=== PATIENT | male | born 1965 | race Caucasian/White ===

== ENCOUNTER 2018-01-24 04:34 | Inpatient (IN) | payer OTHER ==
[~2018-01-24] VITALS: Ht 175.3 cm; Wt 104.8 kg
[2018-01-24] VITALS (18 sets, daily range): BP systolic 116–186; BP diastolic 69–121
[2018-01-24] MEDS ORDERED: NOHOMEMEDICATIONS (05:19)
[2018-01-24 05:41] LABS: URINE BILIRUBIN NEGATIVE (Negative); URINE BLOOD TRACE (Negative); URINE CLARITY CLEAR; URINE COLOR YELLOW; URINE GLUCOSE-RANDOM 3+ (Negative); URINE KETONES 2+ (Negative); URINE LEUKOCYTES-REFLEX NEGATIVE (Negative); URINE NITRITE-REFLEX NEGATIVE (Negative); URINE PROTEIN NEGATIVE (Negative); URINE SPECIFIC GRAVITY <= 1.005 (1.005-1.030); URINE UROBILINOGEN 0.2 E.U./dl (0.2-1.0)
[2018-01-24 05:49] LABS: HEMATOCRIT 51.3 % (42.0-52.0); HEMOGLOBIN 17.1 gm/dL (14.0-18.0); MCH 32.6 pg (26.0-34.0); MCHC 33.4 g/dL (28.0-37.0); MCV 97.7 fL (80.0-100.0); MPV 10.7 fl. (7.2-11.1); NUCLEATED RBCS 0 /100WBC; PLATELET COUNT* 200 thou/uL (150-400); RBC 5.25 mil/uL (4.50-6.00); RDW-CV 13.9 % (10.5-14.5); WBC 8.2 thou/uL (4.0-11.0)
[2018-01-24 05:57] LABS: AMP/METHAMP POSITIVE (Negative); BARBITURATES Negative (Negative); BENZODIAZEPINES Negative (Negative); COCAINE Negative (Negative); METHADONE Negative (Negative); OPIATES Negative (Negative); PCP Negative (Negative); THC Negative (Negative)
[2018-01-24 06:01] LABS: BUN 19 mg/dL (7-18); CALCIUM 10.9 mg/dL (8.5-10.1); CHLORIDE 83 mmol/L (98-107); CREATININE 2.1 mg/dL (0.6-1.3); POTASSIUM 4.2 mmol/L (3.5-5.1)
[2018-01-24 06:02] LABS: ANION GAP 23 mmol/L (7-16)
[2018-01-24 06:04] LABS: CO2 10 mmol/L (21-32); SODIUM 116 mmol/L (136-145)
[2018-01-24 06:11] LABS: ABSOLUTE LYMPHOCYTES 0.3 thou/uL (0.8-5.3); ABSOLUTE MONOCYTES 0.2 thou/uL (0.0-1.2); ABSOLUTE NEUTROPHILS 7.6 thou/uL (1.6-8.1); ANISOCYTOSIS 1+; PLATELET ESTIMATE ADEQUATE; POIKILOCYTOSIS 1+
[2018-01-24 06:13] LABS: ALBUMIN 3.5 g/dL (3.4-5.0); ALKALINE PHOSPHATASE 113 U/L (46-116); SGOT 29 U/L (15-37); SGPT 40 U/L (30-65); TOTAL BILIRUBIN 1.9 mg/dL (<0.1-1.0); TOTAL PROTEIN 7.3 g/dL (6.4-8.2); TROPONIN-I LEVEL <0.06 ng/mL (<0.06)
[2018-01-24 06:17] LABS: PO2 94.2 mmHg (75.0-100.0); pH 7.321 (7.340-7.450)
[2018-01-24 06:19] LABS: PCO2 19.9 mmHg (35.0-45.0)
[2018-01-24 06:22] LABS: GLUCOSE 1340 mg/dL (70-99)
[2018-01-24 06:41] LABS: MAGNESIUM 2.2 mg/dL (1.8-2.4); PHOSPHORUS* 3.7 mg/dL (2.5-4.9)
[2018-01-24] MEDS ORDERED: LISINOPRIL20 MG PO (09:30)
[2018-01-24 10:26] LABS: ALBUMIN 3.6 g/dL (3.4-5.0); CALCIUM 10.6 mg/dL (8.5-10.1); CREATININE 1.7 mg/dL (0.6-1.3); MAGNESIUM 2.2 mg/dL (1.8-2.4); PHOSPHORUS* 2.8 mg/dL (2.5-4.9); POTASSIUM 3.9 mmol/L (3.5-5.1)
[2018-01-24 10:35] LABS: CALCIUM 10.5 mg/dL (8.5-10.1); CREATININE 1.7 mg/dL (0.6-1.3); POTASSIUM 3.8 mmol/L (3.5-5.1)
--- NOTE | 2018-01-24 11:14 | NUR ---
Nutrition: Per ICU rounds, pt is admitted with new onset DM. On insulin gtt. BG was 1300 upon admit. Apparently, he can't afford RX, per rounds. RD will educate on DM basics when off of ICU unit and feeling better. RECOMMEND REFERRAL TO OUTPATIENT CLINIC/CLASSES WELL. Follow up for inpatient educ, 01/26/18.
[2018-01-24 15:15] LABS: CALCIUM 9.5 mg/dL (8.5-10.1); CREATININE 1.2 mg/dL (0.6-1.3); MAGNESIUM 1.9 mg/dL (1.8-2.4); PHOSPHORUS* 1.5 mg/dL (2.5-4.9); POTASSIUM 3.3 mmol/L (3.5-5.1)
--- NOTE | 2018-01-24 17:21 | EKG ---
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: EMILY : 1965 Requested By: Keira Gay Order Number: [id number] MD: Irvin Damian Measurements Intervals [place] Rate: 122 P: -13 AK: 176 QRS: 262 QRSD: 90 T: 47 QT: 298 QTc: 425 Interpretive Statements Sinus tachycardia Inferior infarct, old Abnormal lateral Q waves Probable anteroseptal infarct age uncertain No previous ECG available for comparison Electronically Signed On 01-24-2018 17:21:48 CDT by Irvin Damian [email or web address] <ELECTRONICALLY SIGNED> By: Irvin Damian MD, [facility] 01/24/18 1721 0507 0507 Irvin Damian MD, [facility] /EPI
--- NOTE | 2018-01-24 18:45 | NUR ---
PT ARRIVED TO ICU ROOM 1 VIA CART FROM ED AT 0750. ASSESSMENT CHARTED. VSS THROUGHOUT SHIFT. NORMAL SALINE RAN PER PHYSICIAN ORDER FOR FIRST COUPLE OF LAB DRAWS. DKA PROTOCOL THEN FOLLOWED POTASSIUM WAS DEPLETED. PT IS TOLERATING CLEAR LIQUID AND HAS NOT COMPLAINED OF N/V SINCE ARRIVAL FROM ED. INSULIN DRIP INITIATED AND IS CURRENTLY RUNNING AT 10 UNITS/HOUR. NO OTHER COMPLAINTS.
[2018-01-24 19:26] LABS: ALBUMIN 2.9 g/dL (3.4-5.0); CALCIUM 9.4 mg/dL (8.5-10.1); CREATININE 1.1 mg/dL (0.6-1.3); PHOSPHORUS* 2.5 mg/dL (2.5-4.9); POTASSIUM 3.3 mmol/L (3.5-5.1)
[2018-01-25] VITALS (10 sets, daily range): BP systolic 86–180; BP diastolic 42–115
[2018-01-25 00:16] LABS: ALBUMIN 2.8 g/dL (3.4-5.0); CALCIUM 8.6 mg/dL (8.5-10.1); CREATININE 0.9 mg/dL (0.6-1.3); MAGNESIUM 1.7 mg/dL (1.8-2.4); PHOSPHORUS* 1.8 mg/dL (2.5-4.9); POTASSIUM 3.2 mmol/L (3.5-5.1)
[2018-01-25 04:09] LABS: GLYCOHEMOGLOBIN (HGB A1C) 15.3 % (4.8-5.6)
[2018-01-25 04:10] LABS: HEMATOCRIT 43.6 % (42.0-52.0); MCH 32.1 pg (26.0-34.0); MCHC 34.3 g/dL (28.0-37.0); MCV 93.5 fL (80.0-100.0); MPV 9.7 fl. (7.2-11.1); RBC 4.66 mil/uL (4.50-6.00); RDW-CV 13.8 % (10.5-14.5); WBC 8.8 thou/uL (4.0-11.0)
[2018-01-25 04:27] LABS: ALBUMIN 2.8 g/dL (3.4-5.0); CALCIUM 8.5 mg/dL (8.5-10.1); CREATININE 0.8 mg/dL (0.6-1.3); MAGNESIUM 1.9 mg/dL (1.8-2.4); POTASSIUM 3.2 mmol/L (3.5-5.1); TOTAL BILIRUBIN 1.1 mg/dL (<0.1-1.0); TOTAL PROTEIN 5.9 g/dL (6.4-8.2)
[2018-01-25 04:43] LABS: PHOSPHORUS* 1.6 mg/dL (2.5-4.9)
--- NOTE | 2018-01-25 05:35 | NUR ---
Pt slept for most of shift, but awakens to verbal/physical stimuli. Oriented, cooperative, and pleasant. Pt drank over 1700 ml for this shift. Encouraged to use ice chips to help reduce intake and promote increase in Na+ level, which is now 135 per 0400 lab draw. Phosphorus 1.6; received po dose this am. Potassium 3.2; replacing per protocol. Magnesium replaced last night, level WNL this am. Pt hypertensive this am, latest BP 180/115. Scheduled dose of clonidine given; will continue to monitor. Latest BG 92. Remains on insulin gtt. Dosing adjusted per protocol. Pt states he hopes to be allowed solid food today. Will continue to monitor.
[2018-01-25 05:52] LABS: BE -6.7 mmol/L (-2 to +3); HCO3 17.2 mmol/L (22.0-26.0); PCO2 30.6 mmHg (35.0-45.0); PO2 91.3 mmHg (75.0-100.0); pH 7.368 (7.340-7.450)
[2018-01-25 08:16] LABS: URINE BILIRUBIN NEGATIVE (Negative); URINE BLOOD TRACE (Negative); URINE CLARITY CLEAR; URINE COLOR YELLOW; URINE GLUCOSE-RANDOM 1+ (Negative); URINE KETONES NEGATIVE (Negative); URINE LEUKOCYTES NEGATIVE (Negative); URINE NITRITE NEGATIVE (Negative); URINE PROTEIN NEGATIVE (Negative); URINE UROBILINOGEN 0.2 E.U./dl (0.2-1.0)
[2018-01-25 08:32] LABS: ALBUMIN 2.9 g/dL (3.4-5.0); CALCIUM 8.2 mg/dL (8.5-10.1); CREATININE 0.8 mg/dL (0.6-1.3); MAGNESIUM 2.2 mg/dL (1.8-2.4); PHOSPHORUS* 1.9 mg/dL (2.5-4.9); POTASSIUM 3.4 mmol/L (3.5-5.1)
[2018-01-25 10:05] LABS: CALCIUM 8.8 mg/dL (8.5-10.1); CREATININE 0.9 mg/dL (0.6-1.3); POTASSIUM 3.3 mmol/L (3.5-5.1)
--- NOTE | 2018-01-25 10:15 | NUR ---
INTERDISICIPLINARY ROUNDS: MET WITH PT TO DISCUSS HOME SITUATION/DC PLANNING. 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 NOW WITH NEW DM DX. TALKED WITH PT ABOUT DM MANAGEMENT, NEED TO JIMÉNEZ INSULIN AND GET METER. ASKED NURSING TO START EDUCATION AND WILL SUPPLY WITH NEW METER FROM HOSPITAL. TALKED WITH PT ABOUT BUYING INSULIN REG AND 70/30 AT [facility] FOR $25/BOTTLE. HE STATED HE THINKS HE CAN BORROW MONEY FROM HIS FAMILY TO PURCHASE. STATED HIS DTR MAY BE GETTING HIM A METER FROM HIS MOTHER ALSO. DISCUSSED F/U AND IMPORTANCE OF ESTABLISHING HC, HE IS AGREEABLE TO HAVE [place] M[place] [facility] WILL [place]PT AND PUT INFO IN HIS DC PAPERWORK, DID INFORM PT WILL BE A COPAY OF AT LEAST $25 AT VISIT. GAVE COMMUNITY RESOURCE AND UNINSURED PACKET INFO AND DM ASSOCIATION SCRIPT ASSIST INFO. ALSO TALKED WITH PT ABOUT HIS +DRUG SCREEN/METH. HE STATED HE PLANS TO STOP AND STAY AWAY FROM THOSE 'INFLUENCES', DECLINED DRUG RESOURCE INFO. DISCUSSED WITH DR LONDONO INSULIN OPTION. CALL TO [employer] AND ASKED THAT SHE SCREEN PT FOR ANY FINANCIAL ASSIST HE QUALIFIES FOR.
--- NOTE | 2018-01-25 14:01 | 2DMMODE ---
[place] [address] 2 D/M-MODE ECHOCARDIOGRAM Name: GODWIN NIEVES Room: [address] IN [facility]#: [id number] Admission: 01/24/18 Attend Phys: Junito Fuentes, Discharge: Date of : 65 Date of Service: 01/25/18 1401 Report #: [id number] THIS REPORT FOR: //name// APPROVED REPORT Study performed: 01/25/2018 10:29:47 EXAM: Comprehensive 2D, Doppler, and color-flow Echocardiogram Patient Location: In-Patient Room #: [facility] Status: routine BSA: 2.16 HR: 101 bpm BP: 133/94 mmHg Rhythm: NSR Other Information Study Quality: Good Indications Abnormal ECG 2D Dimensions IVSd: 13.21 (7-11mm) LVOT Diam: 21.37 (18-24mm) LVDd: 34.60 mm PWd: 11.40 (7-11mm) Ascending Ao: 31.68 (22-36mm) LVDs: 16.89 (25-40mm) Aortic Root: 32.70 mm Volumes Left Atrial Volume (Systole) LA ESV Index: 16.40 mL/m2 Aortic Valve AoV Peak Marcos.: 1.67 m/s AO Peak Gr.: 11.13 mmHg LVOT Max P.70 mmHg AO Mean Gr.: 7.32 mmHg LVOT Mean P.87 mmHg LVOT Max V: 1.56 m/s AO V2 VTI: 26.24 cm LVOT Mean V: 1.01 m/s MANJINDER (VTI): 3.31 cm2 LVOT V1 VTI: 24.20 cm Mitral Valve E/A Ratio: 0.86 MV Decel. Time: 236.20 ms MV E Max Marcos.: 0.78 m/[place] [address] 2 D/M-MODE ECHOCARDIOGRAM Name: GODWIN NIEVES Room: [address] IN [facility]#: [id number] Admission: 01/24/18 Attend Phys: Junito Fuentes, Discharge: Date of : 65 Date of Service: 01/25/18 1401 Report #: [id number] PHT: 68.50 ms MVA (PHT): 3.21 cm2 TDI E/Lateral E': 9.75 E/Medial E': 8.67 Medial E' Marcos.: 0.09 m/s Lateral E' Marcos.: 0.08 m/s Pulmonary Valve PV Peak Marcos.: 1.34 m/s PV Peak Gr.: 7.16 mmHg Left Ventricle The left ventricle is normal size. There is normal LV segmental wall motion. There is normal left ventricular wall thickness. Left ventricular systolic function is normal. The left ventricular ejection fraction is within the normal range. LVEF is 65-70%. Grade I - abnormal relaxation pattern. Right Ventricle The right ventricle is normal size. The right ventricular systolic function is normal. Atria The left atrium size is normal. The right atrium size is normal. Aortic Valve Mild aortic valve sclerosis. No aortic regurgitation is present. There is no aortic valvular stenosis. Mitral Valve The mitral valve is normal in structure. There is no mitral valve regurgitation noted. No evidence of mitral valve stenosis. Tricuspid Valve The tricuspid valve is normal in structure. Unable to assess PA pressure. Trace tricuspid regurgitation. Pulmonic Valve The pulmonary valve is normal in structure. There is no pulmonic valvular regurgitation. Great Vessels The aortic root is normal in size. IVC is normal in size and collapses >50% [place] [address] 2 D/M-MODE ECHOCARDIOGRAM Name: GODWNI NIEVES Room: [address] IN [facility]#: [id number] Admission: 01/24/18 Attend Phys: Junito Fuentes, Discharge: Date of : 65 Date of Service: 01/25/18 1401 Report #: [id number] Pericardium There is no pericardial effusion. <Conclusion> The left ventricle is normal size. There is normal left ventricular wall thickness. Left ventricular systolic function is normal. The left ventricular ejection fraction is within the normal range. LVEF is 65-70%. Grade I - abnormal relaxation pattern. The right ventricle is normal size. The left atrium size is normal. Mild aortic valve sclerosis. No aortic regurgitation is present. There is no aortic valvular stenosis. The mitral valve is normal in structure. The tricuspid valve is normal in structure. IVC is normal in size and collapses >50% with inspiration. There is no pericardial effusion. There is normal LV segmental wall motion. <ELECTRONICALLY SIGNED> By: Irvin Damian MD, FACC 01/25/18 140 00 00 Irvin Damian MD, FACC /INF
--- NOTE | 2018-01-25 16:09 | NUR ---
PT TRANSFERRED TO ROOM 201 VIA WHEELCHAIR AND NURSING STAFF AT APPROXIMATELY 1525 FROM ICU. REPORT RECEIVED FROM JERRY BEDOLLA. PT ORIENTED TO ROOM AND CALL LIGHT. 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 PT DENIES ANY PAIN OR SHORTNESS OF BREATH AT THIS TIME. 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 ON RA SAT 100%. PT UP AD FREYA IN ROOM. MEDICATIONS PER JUL. PT REPOSITIONS SELF. HOURLY ROUNDING OBSERVED. BED IN LOW POSITION. CALL LIGHT WITHIN REACH. WILL CONTINUE PLAN OF CARE.
--- NOTE | 2018-01-25 16:45 | EKG ---
[place] [address] ELECTROCARDIOGRAM REPORT Name: GODWIN NIEVES Room: [address] IN [facility]#: [id number] Admission: 01/24/18 Attend Phys: Junito Fuentes MD Discharge: Date of : 65 Report #: [id number] THIS REPORT FOR: //name// [facility] Test Date: 2018-01-25 Test Time: 08:08:50 Pat Name: GODWIN NIEVES Department: Room: [facility] Gender: M Assignment Manager: : 1965 Requested By: Emily Gross Order Number: [id number] MD: Irvin Damian Measurements Intervals [place] Rate: 88 P: 32 [place]: 189 QRS: -83 QRSD: 86 T: 38 QT: 363 QTc: 440 Interpretive Statements Sinus rhythm Inferior infarct, old Anteroseptal infarct, old Compared to ECG 01/24/2018 05:07:26 Sinus tachycardia no longer present Q waves no longer present Myocardial infarct finding still present Electronically Signed On 01-25-2018 16:45:32 CDT by Irvin Damian [email or web address] <ELECTRONICALLY SIGNED> By: Irvin Damian MD, [facility] 01/25/18 1645 0808 0808 Irvin Damian MD, [facility] /EPI
[2018-01-26] VITALS (7 sets, daily range): BP systolic 89–133; BP diastolic 53–70
--- NOTE | 2018-01-26 02:05 | NUR ---
ASSUMED CARE OF PATIENT AT 1900. VSS, AFEBRILE. DENIES PAIN, SOA OR N/V. BLOOD SUGARS ELEVATED TREATED PER EMAR. MORE DIABETES EDUCATIN GIVEN. ALSO DISCUSSED DRUG CESSATION AND LIFESTYLE CHOICES. STATES HE LOST HIS HEALTH INSURANCE AND HASN'T BEEN ABLE TO OBTAIN PRESCRIPTION MEDICATION. CASE MANAGEMENT IS ALREADY CONSULTED AND WORKING WITH PATIENT TO HELP WITH TRANSITION WHEN DISCHARGED.
[2018-01-26 05:20] LABS: CALCIUM 8.1 mg/dL (8.5-10.1); CREATININE 0.7 mg/dL (0.6-1.3); POTASSIUM 3.2 mmol/L (3.5-5.1)
--- NOTE | 2018-01-26 11:05 | NUR ---
ASSUMED CARE OF PT AT 0730. PT RESTING IN BED WAITING FOR BREAKFAST. PT A&0X4, FLAT AFFECT. DENIES ANY PAIN OR SHORTNESS OF BREATH AT THIS TIME. PT STATES HE IS READY TO HAVE SOME BREAKFAST. 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 ON RA SAT UPPER 90'S. PT UP SBA TO BATHROOM. PT GOAL FOR TODAY IS TO MONITOR BLOOD SUGARS CLOSELY, ADJUSTMENTS TO INSULIN MADE PER EMAR, INCREASE ACTIVITY AND REPLACE POTASSIUM PER ELECTROLYTE PROTOCOL. PT MOTHER CALLED THIS AM AND UPDATED ON CURRENT PLAN OF CARE. AM ASSESSMENT CHARTED. MEDICATIONS PER JUL. PT REPOSITIONS SELF. HOURLY ROUNDING OBSERVED. BED IN LOW POSITION. CALL LIGHT WITHIN REACH. WILL CONTINUE PLAN OF CARE.
--- NOTE | 2018-01-26 15:34 | NUR ---
RAMBO FROM [employer] HER TODAY, WILL SUBMIT MEDICAID [place] FOR PT
--- NOTE | 2018-01-26 17:54 | NUR ---
NO ACUTE CHANGES THROUGHOUT SHIFT. REFER TO CHARTING. PT MADE MED SURG STATUS. ADJUSTMENTS MADE TO INSULIN- SSI AND LONG ACTING- REFER TO EMAR. PT DENIES ANY PAIN OR SHORTNESS OF BREATH THROUGHOUT AFTERNOON. CONTINUES TO BE ON RA SAT UPPER 90'S. PT UP AD FREYA IN ROOM. DIABETES EDUCATION GIVEN TODAY. PT SLOWLY PROGRESSING TOWARDS GOALS. MEDICATIONS PER MAR. PT REPOSITIONS SELF. HOURLY ROUNDING OBSERVED. BED IN LOW POSITION. CALL LIGHT WITHIN REACH. WILL CONTINUE PLAN OF CARE.
--- NOTE | 2018-01-27 04:57 | NUR ---
ASSUMED CARE OF PT AFTER REPORT AT 1930. PT A&OX4. VSS. PHYSICAL ASSESSMENT COMPLETED AND CHARTED. PT ON RA WITH 99% O2 SAT. PT ON MEDSURG STATUS. PT UP STANDBY ASSIST TO TOILET. PT RESTED WELL ON BED. DENIES ANY PAIN OR DISCOMFORT. HOURLY ROUNDING OBSERVED. HS REST & SAFETY GOALS ACHIEVED. CALL LIGHT WITHIN REACH. BED IN LOW POSITION.
[2018-01-27 05:59] LABS: CALCIUM 8.7 mg/dL (8.5-10.1); CREATININE 0.8 mg/dL (0.6-1.3)
[2018-01-27 07:35] VITALS: BP 120/78
[2018-01-27 08:44] VITALS: BP 120/78
[2018-01-27] MEDS ORDERED: HUMULIN 70100 UNIT/2 SUBQ (09:19)
[2018-01-27] MEDS ORDERED: PRINIVIL20 MG PO (09:19)
[2018-01-27] MEDS ORDERED: ASPIR 8181 MG PO (09:19)
--- NOTE | 2018-01-27 15:45 | NUR ---
PATIENT DISCHARGED TO HOME. DISCHARGE PAPERS REVIEWED AND SIGNED. PRESCRIPTIONS AND INFORMATION SHEETS GIVEN. IV REMOVED. TEACHING DONE ON HOW TO CHECK BLOOD SUGARS AND ON HOW TO ADMINISTER INSULIN. PATIENT GIVEN INDORMATION ON DIABETES. PATIENT DENIES ANY FURTHER NEEDS. PATIENT TAKEN BY WHEELCHAIR TO EXIT. LEFT WITH SO.
--- NOTE | 2018-01-29 11:08 | CON ---
[address] [address] CONSULTATION Name: GODWIN NIEVES Room: [address] IN .R.#: [id number] Admission: 01/24/18 Attend Phys: Junito Fuentes MD Discharge: 01/27/18 Date of : 65 Report #: [id number] THIS REPORT FOR: //name// CC: Junito Fuentes FAM physician/PCP DATE OF SERVICE: 01/24/2018 REQUESTING PHYSICIAN: Junito Fuentes M.D. REASON FOR CONSULTATION: Acute kidney injury. HISTORY OF PRESENT ILLNESS: The patient is a 52-year-old white male with medical history significant for hypertension that was diagnosed about a year ago. The patient apparently is not taking his medication as prescribed. Also has history of BPH, history of GERD, now he was diagnosed with diabetes mellitus type 1, presented with not feeling well, being very weak, polyuria, polydipsia and was found to be in diabetic ketoacidosis with carbon dioxide of 11, blood sugar of 1340. His creatinine was 2.1; placed on insulin drip and fluids per DKA protocol. His creatinine came down from 2.1 to 1.7. PAST MEDICAL HISTORY: As mentioned earlier. SOCIAL HISTORY: The patient is . He is unemployed. He lives with his girlfriend. Does not smoke tobacco, denies use of illegal drugs, does not use alcohol. FAMILY HISTORY: Negative for diabetes, both parents are alive. His brother is alive, no diabetes. REVIEW OF SYSTEMS: Positive for the mentioned earlier. MEDICATIONS: He was not taking any blood pressure medication as he was prescribed. PHYSICAL EXAMINATION: GENERAL: He is awake and alert. VITAL SIGNS: Blood pressure 180/120, heart rate 120, temperature 37.1, respirations 19. HEAD, EYES, EARS, NOSE, AND THROAT: Pupils round. NECK: Fatty. LUNGS: Clear. CARDIOVASCULAR: Regular rate. Tachycardia. ABDOMEN: Soft. LABORATORY REPORT: [place] [address] CONSULTATION Name: GODWIN NIEVES Room: [address] IN [facility].#: [id number] Admission: 01/24/18 Attend Phys: Junito Fuentes MD Discharge: 01/27/18 Date of : 65 Report #: [id number] ASSESSMENT AND PLAN: 1. Hypertension. Blood pressure is not controlled. The patient is noncompliant with his medication prescription. 2. Newly diagnosed diabetes mellitus type 1. Treatment per DKA protocol. The patient will be started on the insulin in a long-term and he will need to have diabetic education. 3. Acute kidney injury. The baseline renal function unknown. 4. Obesity. 5. Gastroesophageal reflux disease. 6. Benign prostatic hypertrophy. Thank you very much for asking my opinion on abnormal renal function. <ELECTRONICALLY SIGNED> By: Parminder Rodriguez MD 01/29/18 1108 1215 [id number] ALDA Moreno
== END 2018-01-27 15:45 | disposition home or self-care (01) | DRG 682 ==
LOC: M.ERS 04:34 → M.ICU 06:37 → M.TBA-ER 06:37 → M.ICU 07:54 → M.2W 01-25 15:45
PROVIDERS: Internal Medicine; Personal Emergency Response Attendant; ADMIT Internal Medicine
DX: N17.9 Acute kidney failure, unspecified (principal); E10.10 Type 1 diabetes mellitus with ketoacidosis without coma; M19.90 Unspecified osteoarthritis, unspecified site; I10 Essential (primary) hypertension; E66.9 Obesity, unspecified; K21.9 Gastro-esophageal reflux disease without esophagitis; N40.0 Benign prostatic hyperplasia without lower urinary tract symptoms; E10.65 Type 1 diabetes mellitus with hyperglycemia; Z79.82 Long term (current) use of aspirin; Z88.1 Allergy status to other antibiotic agents; Z68.34 Body mass index [BMI] 34.0-34.9, adult; Z79.899 Other long term (current) drug therapy; Z88.3 Allergy status to other anti-infective agents

== ENCOUNTER 2018-08-16 23:00 | Emergency (ER) | payer OTHER ==
[~2018-08-16] VITALS: Ht 175.3 cm; Wt 99.8 kg
[~2018-08-16 23:00] MED LIST: ASPIR 8181 MG PO; HUMULIN 70100 UNIT/2 SUBQ; LISINOPRIL20 MG PO; NOHOMEMEDICATIONS; PRINIVIL20 MG PO
[2018-08-16 23:17] LABS: ABSOLUTE BASOPHILS 0.1 thou/uL (0.0-0.2); ABSOLUTE EOSINOPHILS 0.1 thou/uL (0.0-0.7); ABSOLUTE LYMPHOCYTES 2.4 thou/uL (0.8-5.3); ABSOLUTE MONOCYTES 0.6 thou/uL (0.0-1.2); ABSOLUTE NEUTROPHILS 5.2 thou/uL (1.6-8.1); BASOPHILS 0.8 %; EOSINOPHILS 1.2 %; HEMATOCRIT 50.3 % (42.0-52.0); HEMOGLOBIN 17.4 gm/dL (14.0-18.0); LYMPHOCYTES 28.6 %; MCH 31.6 pg (26.0-34.0); MCHC 34.6 g/dL (28.0-37.0); MCV 91.4 fL (80.0-100.0); MONOCYTES 7.1 %; MPV 8.9 fl. (7.2-11.1); NUCLEATED RBCS 0 /100WBC; PLATELET COUNT* 232 thou/uL (150-400); POLYS 62.3 %; WBC 8.3 thou/uL (4.0-11.0)
[2018-08-16 23:30] LABS: CALCIUM 9.8 mg/dL (8.5-10.1); CREATININE 1.3 mg/dL (0.6-1.3); POTASSIUM 3.9 mmol/L (3.5-5.1); TOTAL BILIRUBIN 1.3 mg/dL (<0.1-1.0)
[2018-08-17 00:26] LABS: URINE BILIRUBIN NEGATIVE (Negative); URINE BLOOD NEGATIVE (Negative); URINE CLARITY CLEAR; URINE COLOR YELLOW; URINE GLUCOSE-RANDOM 2+ (Negative); URINE KETONES NEGATIVE (Negative); URINE LEUKOCYTES-REFLEX NEGATIVE (Negative); URINE NITRITE-REFLEX NEGATIVE (Negative); URINE PROTEIN 1+ (Negative); URINE SPECIFIC GRAVITY 1.025 (1.005-1.030); URINE UROBILINOGEN 0.2 E.U./dl (0.2-1.0)
[2018-08-17 00:33] LABS: AMP/METHAMP POSITIVE (Negative); BARBITURATES Negative (Negative); BENZODIAZEPINES Negative (Negative); COCAINE Negative (Negative); METHADONE Negative (Negative); OPIATES Negative (Negative); PCP Negative (Negative); THC Negative (Negative)
[2018-08-17] MEDS ORDERED: LOPRESSOR50 PO (01:20)
[2018-08-17] MEDS ORDERED: LISINOPRIL10 MG PO (01:20)
[2018-08-17 02:10] VITALS: BP 147/104
--- NOTE | 2018-08-17 12:17 | EKG ---
[place] [address] ELECTROCARDIOGRAM REPORT Name: GODWIN NIEVES Room: [facility]#: [id number] Admission: 08/16/18 Attend Phys: Discharge: 08/17/18 Date of : 65 Report #: [id number] THIS REPORT FOR: //name// [facility] ED Test Date: 2018-08-16 Test Time: 23:27:40 Pat Name: GODWIN NIEVES Department: Room: Gender: M Human Resources Administrator: : 1965 Requested By: Nicolasa Nguyen Order Number: [id number] MD: Irvin Damian Measurements Intervals [place] Rate: 96 P: 25 PA: 191 QRS: 243 QRSD: 89 T: 87 QT: 359 QTc: 454 Interpretive Statements Sinus rhythm Inferior infarct, old Anterior infarct, old Lateral leads are also involved Compared to ECG 01/25/2018 08:08:50 No significant changes Electronically Signed On 08-17-2018 12:17:24 CDT by Irvin Damian [email or web address] <ELECTRONICALLY SIGNED> By: Irvin Damian MD, [facility] 08/17/18 1217 26 26 Irvin Damian MD, FAC /EPI
== END 2018-08-17 02:04 | disposition home or self-care (01) ==
LOC: M.ERS 23:00
PROVIDERS: Emergency Medicine
DX: I10 Essential (primary) hypertension (principal); E11.65 Type 2 diabetes mellitus with hyperglycemia; F15.10 Other stimulant abuse, uncomplicated; Z88.1 Allergy status to other antibiotic agents; Z79.4 Long term (current) use of insulin